=== PATIENT | female | born 1995 | race Caucasian/White ===

== ENCOUNTER 2019-03-05 07:41 | Inpatient (IN) ==
[2019-03-05 08:15] LABS: URINE SOURCE VOIDED
[2019-03-05 08:28] LABS: BILIRUBIN URINE NEGATIVE (NEGATIVE); BLOOD URINE TRACE-INTACT (NEGATIVE); COLOR YELLOW; GLUCOSE URINE NEGATIVE (NEGATIVE); KETONE URINE NEGATIVE (NEGATIVE); LEUKOCYTES URINE MODERATE (NEGATIVE); NITRITE URINE NEGATIVE (NEGATIVE); PH URINE 6.5; PROTEIN URINE NEGATIVE (NEGATIVE); UROBILINOGEN URINE 0.2 EU/dL (0.2-1.0)
[2019-03-05 08:29] LABS: CLARITY CLOUDY (CLEAR)
[2019-03-05] MEDS ORDERED: TYLENOL PO PRN (10:43)
[2019-03-05] MEDS ORDERED: KEFZOL 1 GM/D5W 1 GM/50 ML IVPB IV PRN (10:43)
[2019-03-05] MEDS ORDERED: PEPCID PO PRN (10:43)
[2019-03-05] MEDS ORDERED: REGLAN PO ONE (10:43)
[2019-03-05] MEDS ORDERED: PEPCID PO ONE (10:43)
[2019-03-05] MEDS ORDERED: PEPCID IV PRN (10:43)
[2019-03-05] MEDS ORDERED: STADOL IV PRN (10:43)
[2019-03-05] MEDS ORDERED: PITOCIN 30 UNITS/NS 30 UNIT/500 ML IV.SOLN IV SCH (10:45)
[2019-03-05] MEDS ORDERED: SODIUM CHLORIDE 0.9% INJ SCH (10:45)
[2019-03-05 11:26] LABS: UR AMPHETAMINES QUAL NONE DETECTED (NONE DETECT); UR BARBITUATES QUAL NONE DETECTED (NONE DETECT); UR CANNABINOIDS QUAL NONE DETECTED (NONE DETECT); UR COCAINE QUAL NONE DETECTED (NONE DETECT); UR METHADONE QUAL NONE DETECTED (NONE DETECT); UR PCP QUAL NONE DETECTED (NONE DETECT)
[2019-03-05] MEDS: LR 1,000 ML IV SCH ×2 (11:28→15:03)
[2019-03-05] MEDS: ZOFRAN IV PRN ×3 (11:50→19:14)
[2019-03-05 11:57] LABS: BASO# 0.01 X1000 (0.0-0.2); BASO% 0.1 % (0.0-0.8); EOS# 0.05 X1000 (0.0-0.7); EOS% 0.4 % (0.0-10.0); HEMATOCRIT 40.2 % (37.0-47.0); HEMOGLOBIN 13.3 g/dL (12.0-16.0); IMM GRAN# 0.04 X1000 (0.0-0.04); IMM GRAN% 0.3 % (0.0-0.5); LYMPH# 1.14 X1000 (1.2-3.4); LYMPH% 8.4 % (20.5-51.1); MCH 31.1 PG (27-31); MCHC 33.1 g/dL (33-37); MCV 93.9 FL (81-99); MONO# 0.61 X1000 (0.11-0.59); MONO% 4.5 % (1.7-9.3); MPV 13.8 FL (7.4-10.4); NEUT# 11.75 X1000 (1.4-6.5); NEUT% 86.3 % (42.2-75.2); PLT 152 X1000 (130-400); RBC 4.28 XMIL (4.2-5.4)
[2019-03-05 12:44] LABS: EOS 1 % (1-10); LYMPHS 8 % (21-51); MONO 5 % (1-9); SEGS 86 % (42-75)
[2019-03-05 12:45] LABS: ANISOCYTOSIS 1+
[2019-03-05] MEDS ORDERED: FENTANYL-BUPIV-NS 2 MCG-0.1% 250 ML EPIDURAL PRN (14:21)
[2019-03-05] MEDS ORDERED: NAROPIN 0.2% INJ ONE (14:30)
--- NOTE | 2019-03-05 16:34 | OB/GYN PROGRESS NOTE ---
Progress Note OB - . OB Progress Note: Vital Signs - 24 hr 03/05/19 07:47 03/05/19 12:00 Temperature 97.5 F L 97.2 F L Pulse Rate 73 76 Respiratory Rate 20 16 Blood Pressure 111/61 110/65 O2 Sat by Pulse Oximetry 98 96 Laboratory Results - last 24 hr 03/05/19 03/05/19 03/05/19 08:00 08:34 10:30 WBC RBC Hgb Hct MCV MCH MCHC RDW Std Deviation Plt Count MPV Immature Gran % (Auto) Neut % (Auto) Lymph % (Auto) [place] % (Auto) Eos % (Auto) Baso % (Auto) Immature Gran # (Auto) Neut # (Auto) Lymph # (Auto) [place] # (Auto) Eos # (Auto) Baso # (Auto) Segmented Neutrophils Lymphocytes Monocytes Eosinophils Anisocytosis Macrocytosis POC Glucose 84 Urine Source VOIDED Urine Color YELLOW Urine Clarity CLOUDY A Urine pH 6.5 Ur Specific [place] 1.020 Urine Protein NEGATIVE Urine Ketones NEGATIVE Urine Blood TRACE-INTACT A Urine Nitrite NEGATIVE Urine Bilirubin NEGATIVE Urine Urobilinogen 0.2 Urine WBC MODERATE A Urine Glucose NEGATIVE Urine Opiates Screen PRESUMPTIVE POSITIVE A Ur Oxycodone Screen PRESUMPTIVE POSITIVE A Ur Methadone, Qual NONE DETECTED Ur Barbiturates Screen NONE DETECTED Ur Phencyclidine Scrn NONE DETECTED Ur Amphetamines Screen NONE DETECTED U Benzodiazepines Scrn PRESUMPTIVE POSITIVE A Urine Cocaine Screen NONE DETECTED U Cannabinoids Screen NONE DETECTED RPR Rubella Immunity Screen 03/05/19 03/05/19 03/05/19 11:20 11:20 11:20 WBC 13.60 H RBC 4.28 Hgb 13.3 Hct 40.2 MCV 93.9 MCH 31.1 H MCHC 33.1 RDW Std Deviation 13.0 Plt Count 152 MPV 13.8 H Immature Gran % (Auto) 0.3 Neut % (Auto) 86.3 H Lymph % (Auto) 8.4 L [place] % (Auto) 4.5 Eos % (Auto) 0.4 Baso % (Auto) 0.1 Immature Gran # (Auto) 0.04 Neut # (Auto) 11.75 H Lymph # (Auto) 1.14 L [place] # (Auto) 0.61 H Eos # (Auto) 0.05 Baso # (Auto) 0.01 Segmented Neutrophils 86 H Lymphocytes 8 L Monocytes 5 Eosinophils 1 Anisocytosis 1+ Macrocytosis 1+ POC Glucose Urine Source Urine Color Urine Clarity Urine pH Ur Specific [place] Urine Protein Urine Ketones Urine Blood Urine Nitrite Urine Bilirubin Urine Urobilinogen Urine WBC Urine Glucose Urine Opiates Screen Ur Oxycodone Screen Ur Methadone, Qual Ur Barbiturates Screen Ur Phencyclidine Scrn Ur Amphetamines Screen U Benzodiazepines Scrn Urine Cocaine Screen U Cannabinoids Screen RPR NON-REACTIVE Rubella Immunity Screen IMMUNE 03/05/19 14:34 WBC RBC Hgb Hct MCV MCH MCHC RDW Std Deviation Plt Count MPV Immature Gran % (Auto) Neut % (Auto) Lymph % (Auto) [place] % (Auto) Eos % (Auto) Baso % (Auto) Immature Gran # (Auto) Neut # (Auto) Lymph # (Auto) [place] # (Auto) Eos # (Auto) Baso # (Auto) Segmented Neutrophils Lymphocytes Monocytes Eosinophils Anisocytosis Macrocytosis POC Glucose 78 Urine Source Urine Color Urine Clarity Urine pH Ur Specific [place] Urine Protein Urine Ketones Urine Blood Urine Nitrite Urine Bilirubin Urine Urobilinogen Urine WBC Urine Glucose Urine Opiates Screen Ur Oxycodone Screen Ur Methadone, Qual Ur Barbiturates Screen Ur Phencyclidine Scrn Ur Amphetamines Screen U Benzodiazepines Scrn Urine Cocaine Screen U Cannabinoids Screen RPR Rubella Immunity Screen 5cm and BS 78 at 2:30pm. 3:40PM epidural placed. States feeling "much better" after Epidural. FHT's 140's reactive and reassuring. Category 1 tracing. TOCO approximately every 3-7 min. Discussed with patient, mother present, and recommended and offered AROM. Discussed risks and benefits. Patient states understanding and agreeable with AROM. My check 5/80/-2 and cephalic. Minimal bloody show. AROM performed and clear fluid present. BS 77 at present check. ASSESSMENT and PLAN: Continue expectant management. BS q 2 hours if over 100 to increase to q hour check. Discussed with patient and her mother if BS 120 or over use of insulin in as want good BS control in labor. Discussed risks for baby of hypoglycemia post . States understanding. Peanut ball. If labor stalls discussed with patient pitocin use as next step. Risks and benefits discussed.
--- NOTE | 2019-03-05 17:14 | HISTORY AND PHYSICAL ---
CHIEF COMPLAINT: Thirty-nine weeks 5 days gestation with complaints of contractions, onset of labor. HISTORY OF PRESENT ILLNESS: The patient is a 23-year-old, G1, P0, female with EDC 03/07/2019, placing her at 39 weeks and 5 days gestation. She was scheduled for induction on 03/06/2019 for gestational diabetes mellitus type A1. She presented to the Labor and Delivery area with complaints of cramping since approximately 6 a.m. on 03/05/2019. Upon arrival, she had irregular contractions and on 1st check she was found to be 3, 80, -2, intact, cephalic presentation. She had had about 2 contractions in 25 minutes. heart tones were 140s, reactive, and reassuring. The patient was allowed to walk with intermittent monitoring. On recheck she was found to be 3 to 4, still 80, and perhaps -1 station per nursing. Decision was made to place the patient into room for admission and expectant management for labor. Fingerstick blood glucose on entry was 84. GBS negative. OBSTETRIC HISTORY: G1, P0. Per review of records, she was treated in October for trichomonas. She was diagnosed with gestational diabetes but has been diet controlled. records state that blood sugar control has been good. She has had MFM evaluation during this . Last visit with MFM on 03/02/2019 patient states she was told that the baby's estimated weight was around 6 pounds 11 ounces. Her last visit here in [place] was 03/03/2019. At that point in time, she was not checked, but states that 2 weeks prior she was approximately 1 cm. She had a transfer of care during this at 32 weeks 3 days gestation from [facility]. records were reviewed. However, no ultrasound reports are available for direct visualization. There are no ultrasound reports within the records or in [facility]. In the records itself, it just states "referal to [facility] for growth scans, WNL." The patient is B positive. GBS negative. RPR nonreactive. HIV nonreactive. GC and chlamydia are negative. Within the records in [facility], rubella, hepatitis B, and hepatitis C were not done. Those were ordered for today. PAST MEDICAL HISTORY: Right eye medial strabismus rosacea history of Ureaplasma urealyticum, history of depression, medication use in the past, no medication use for years. Gestational diabetes A1 PCOS hirsutism optic nerve hypoplasia history of generalized headaches. SURGICAL HISTORY: Left forearm repair, per patient shattered on a trampoline. Listed in arthroscopic shoulder surgery. Patient denies shoulder surgery. SOCIAL HISTORY: She reports past smoking for which she stated she smoked when she was approximately 14 to 16 years of age. Patient denies any recent tobacco use. Denies alcohol use. Denies illicit drug use. FAMILY MEDICAL HISTORY: Father with diabetes. Paternal uncle with diabetes and paternal grandfather with diabetes. She states her sister has a heart condition, but she cannot give any further details, but that her sister has not had any heart surgery. ALLERGIES: Bactrim. MEDICATIONS: vitamins. PHYSICAL EXAMINATION: VITAL SIGNS: Stable afebrile. heart tones 140s, reactive, and reassuring. GENERAL: Alert and oriented x3. No acute distress. CARDIOVASCULAR: Regular rate and rhythm. LUNGS: Clear to auscultation bilaterally. ABDOMEN: Bowel sounds present. Soft, nondistended, nontender. No rebound or guarding. Gravid uterus. Soft, nontender. PELVIC EXAM: On entry at 1st triage I checked her and found her to be 3, 80, - 2, and she has made progression in early labor. EXTREMITIES: No calf pain. No edema. SKIN: It is noted that the patient has a rash on her face with acne. Patient states she has a history of rosacea. Hirsutism noted. HEENT: Right eye medial strabismus. LAB WORK: Blood sugar 84 on admit and has been under good control during labor. Hemoglobin and hematocrit on entry 13.3 and 40.2. Urine drug screen on entry was positive for opiates, positive for oxycodone, and positive for benzodiazepines. Upon direct asking to the patient, she denies any use. Rubella did return immune. RPR nonreactive. Hepatitis B and C are still pending. ASSESSMENT: A 23-year-old, G1, P0, at 39 weeks 5 days gestation with gestational diabetes A1, diet controlled, in labor. PLAN: 1. The patient is admitted for expectant management. 2. GBS status negative, no need for GBS prophylaxis. 3. Pain control during labor was discussed with the patient including relaxation and breathing techniques, use of IV medication for discomfort but that would only be given to a certain point as it has effects on the baby. It was also discussed epidural for pain management if she desires. 4. Discussed with patient importance of blood sugar control in labor. Discussed checking sugars frequently and if become elevated possibility for treatment with insulin. Discussed risks for baby for hypoglycemia and that baby would be checked post . States understanding. 5. Patient with history of depression. No medication use at present and was treated in the distant past. I did discuss with the patient there are increased risk for depression for those that have a history of depression. Signs and symptoms discussed and to be aware of. She states understanding. 6. Common course in labor is expectant management. I did discuss though she is and there is always a possibility of a . If that would occur, it would be for maternal or reasons. Risks and benefits of this were discussed. Also discussed if bleeding is extensive during delivery or surgery, she is always at risk for a blood transfusion, the risks associated with receiving blood products. Patient stated understanding and that she would accept blood products in case of emergency. 7. Nursery was notified regarding positive drug screen for opiates, oxycodone, and benzodiazepines. The patient denies any use. Also made aware of GDM - A1. cc: Devorah Gatica MD MTDD
[2019-03-05] MEDS ORDERED: XYLOCAINE-MPF 1% INJ ONE (20:46)
[2019-03-05] MEDS ORDERED: BICITRA PO ONE (21:54)
[2019-03-06] MEDS ORDERED: PERI MEDS (DERMOPLAST/NUPERCAINAL/TUCKS) MISC PRN (01:14)
[2019-03-06] MEDS ORDERED: EPIFOAM FOAM TOP PRN (01:14)
[2019-03-06] MEDS ORDERED: NORCO-5 PO PRN (01:28)
[2019-03-06] MEDS ORDERED: NORCO-10 PO PRN (01:28)
[2019-03-06] MEDS ORDERED: CYTOTEC PO PRN (01:28)
[2019-03-06] MEDS ORDERED: HYDROXYZINE IM PRN (01:28)
[2019-03-06] MEDS ORDERED: ATARAX PO PRN (01:28)
[2019-03-06] MEDS ORDERED: BENADRYL IV PRN (01:28)
[2019-03-06] MEDS ORDERED: BENADRYL PO PRN (01:28)
[2019-03-06] MEDS ORDERED: XYLOCAINE-MPF 1% INJ PRN (01:28)
[2019-03-06] MEDS ORDERED: PITOCIN 20 UNITS/NS 20 UNITS/1,000 ML IV.SOLN IV SCH (01:30)
[2019-03-06] MEDS ORDERED: PITOCIN 30 UNITS/NS 30 UNIT/500 ML IV.SOLN IV SCH (01:30)
--- NOTE | 2019-03-06 02:35 | OPERATIVE NOTE ---
PROCEDURE/DELIVERY DATE: 03/06/2019 DELIVERY SUMMARY: The patient is a 23-year-old, G1, P0, female scheduled for induction on 03/06/2019, for gestational diabetes mellitus type A1 who presented at 39 weeks and 5 days gestation with onset of labor on 03/05/19. She ended up progressing to 5 cm on her own, and got an epidural at 3:38 p.m. As the patient had epidural and contraction pattern was somewhat irregular, AROM occurred at 4:20 p.m. of clear fluid for augmentation. Through a couple of checks she remained 5 to 6 cm, therefore Pitocin through the IV was added for augmentation at 7:10 p.m. Peanut ball was utilized. She was found to be 9 cm at 9:20 p.m, anterior lip at 10:10 p.m., and found to be complete at 11:15 p.m. Blood sugars were in the 60s to 90s throughout labor. She began pushing at 11:25 p.m., and underwent a spontaneous vaginal delivery at 12:50 a.m. The was in the direct OP position. At delivery there was found to be the cord around the neck x 1 that was reduced, as well as around the right leg. Terminal meconium was present. Thick mucus was noted in the oropharynx, therefore I clamped and cut the cord without a 1 minute delay, and handed off to waiting nurses for support. Apgars were 7 and 8 at 1 and 5 minutes respectively. Female "Meron Anne," 6# 4oz. Placenta delivered at 12:55 a.m. spontaneously. There was active management of the 3rd stage of labor with gentle downward traction, uterine massage and opening of the Pitocin through the IV after the delivery of the placenta. Uterus was explored, and there were no palpated retained products of conception. The placental disk grossly appeared intact. Examination of the perineum revealed a second-degree perineal laceration in the midline, this was repaired with a 3-0 Vicryl suture starting in the vaginal shelf, the laceration itself did not go more than 1.5 cm proximal into the vaginal area this was then brought through the introitus. Patient was feeling some at the skin margin. 1% lidocaine without epinephrine, 10ml total injected. The 2-0 Vicryl suture was then used to place 3 interrupted sutures in the perineal tissues for reapproximation. Good support was noted. The 3-0 Vicryl then was brought down in a subcutaneous fashion and back up in a subcuticular fashion for excellent reapproximation. The patient does have a hemorrhoid at the 12 o'clock position that had increased in size with pushing; however, it is not thrombosed or incarcerated. Discussed with nursing for greg-care measures as well as ice as soon as possible. EBL is estimated at 250 mL. Both mother and baby are doing well post delivery. The patient plans on breast-feeding. She will be scheduled for a fasting blood glucose morning after delivery. UDS positive for opiates and benzos on entry, patient denies use. Social service consult placed. cc: Devorah Gatica MD MTDD
[2019-03-06] MEDS: MOTRIN PO PRN ×2 (08:52→21:21)
[2019-03-06 10:18] LABS: HEPATITIS B SURFACE ANTIGEN SEE COMMENTS
[2019-03-06 20:31] LABS: UR BENZODIAZEPIN QUAL NONE DETECTED (NONE DETECT)
[2019-03-06 20:32] LABS: UR OPIATES QUAL NONE DETECTED (NONE DETECT); UR OXYCODONE QUAL NONE DETECTED (NONE DETECT)
[2019-03-06] MEDS: PERICOLACE PO SCH (21:21)
[2019-03-07 05:52] LABS: BASO# 0.02 X1000 (0.0-0.2); BASO% 0.2 % (0.0-0.8); EOS# 0.15 X1000 (0.0-0.7); EOS% 1.2 % (0.0-10.0); HEMATOCRIT 32.9 % (37.0-47.0); HEMOGLOBIN 10.4 g/dL (12.0-16.0); IMM GRAN# 0.03 X1000 (0.0-0.04); IMM GRAN% 0.2 % (0.0-0.5); LYMPH# 1.96 X1000 (1.2-3.4); LYMPH% 15.4 % (20.5-51.1); MCHC 31.6 g/dL (33-37); MCV 98.2 FL (81-99); MONO# 0.61 X1000 (0.11-0.59); MONO% 4.8 % (1.7-9.3); MPV 13.1 FL (7.4-10.4); NEUT# 9.96 X1000 (1.4-6.5); NEUT% 78.2 % (42.2-75.2); PLT 134 X1000 (130-400); RBC 3.35 XMIL (4.2-5.4); RDW 13.5 % (11.5-14.5); WBC 12.73 X1000 (4.8-10.8)
--- NOTE | 2019-03-07 07:37 | OB/GYN PROGRESS NOTE ---
- Subjective Pt seen and examined. c/o nausea last night, currently resolved. Ambulating and urinating without difficulty. Tolerating regular diet. Denies fever, chills. +Breast and bottle feeding. Reports decreased lochia. OB Physical Exam Vital Signs - 8 hr 03/07/19 00:00 03/07/19 04:00 Temperature 96.6 F L 96.8 F L Pulse Rate 93 H 66 Respiratory Rate 18 18 Blood Pressure 105/59 101/54 O2 Sat by Pulse Oximetry 96 96 - CONSTITUTIONAL General Appearance: appears well, alert, no apparent distress - RESPIRATORY Respiratory: lungs clear - CARDIOVASCULAR Cardiovascular: regular rate, rhythm - GASTROINTESTINAL (ABDOMEN) Abdominal Exam: non tender (FF at umbilicus), soft - MUSCULOSKELETAL Extremity: no calf tenderness - PSYCHIATRIC Psych/Mental Status: normal mood/affect, oriented x 3 Active Medications Generic Name Dose Route Start Last Admin Trade Name Freq PRN Reason Stop Dose Admin Acetaminophen 650 mg 03/05/19 10:43 Tylenol PO Q4-6H PRN PRN Headache Hydrocodone Bitart/Acetaminophen 1 each 03/06/19 01:28 Orange-5 PO Q3-4H PRN PRN Pain (1-6 on Pain Scale) Hydrocodone Bitart/Acetaminophen 1 each 03/06/19 01:28 Orange-10 PO Q3-4H PRN PRN Pain (7-10 on Pain Scale) Benzocaine 1 each 03/06/19 01:14 03/06/19 02:13 Patricia Meds (Dermoplast/Nupercainal/Tucks) MISC 1 applic 3-4XDAY PRN PRN Administration Mild Pain Diphenhydramine HCl 25 mg 03/06/19 01:28 Benadryl PO Q4H PRN PRN Itching Famotidine 40 mg 03/05/19 10:43 Pepcid PO Q12H PRN PRN GI upset or indigestion Hydrocortisone/Pramoxine 0 gm 03/06/19 01:14 03/06/19 02:13 Epifoam Foam TOP 1 applic 3-4XDAY PRN PRN Administration HEMORRHOIDS Hydroxyzine HCl 50 mg 03/06/19 01:28 Atarax PO Q3-4H PRN PRN Nausea Hydroxyzine HCl 50 mg 03/06/19 01:28 Hydroxyzine IM Q3-4H PRN PRN Nausea Ibuprofen 800 mg 03/06/19 01:28 03/06/19 21:21 Motrin PO 800 mg Q8H PRN PRN Administration cramping Misoprostol 800 microgm 03/06/19 01:28 Cytotec PO PRN PRN Severe bleeding Ondansetron HCl 4 mg 03/05/19 10:43 03/05/19 19:14 Zofran IV 4 mg PRN PRN Administration Nausea Senna/Docusate Sodium 1 each 03/06/19 21:00 03/06/19 21:21 Pericolace PO 1 each QHS TRISTEN Administration Sodium Chloride 5 - 10 ml 03/05/19 10:45 Sodium Chloride 0.9% INJ DIRECTED [facility] Laboratory Results - last 24 hr 03/05/19 03/05/19 03/07/19 10:30 11:20 05:10 WBC 12.73 H RBC 3.35 L Hgb 10.4 L D Hct 32.9 L MCV 98.2 MCH 31.0 MCHC 31.6 L RDW Std Deviation 13.5 Plt Count 134 MPV 13.1 H Immature Gran % (Auto) 0.2 Neut % (Auto) 78.2 H Lymph % (Auto) 15.4 L [place] % (Auto) 4.8 Eos % (Auto) 1.2 Baso % (Auto) 0.2 Immature Gran # (Auto) 0.03 Neut # (Auto) 9.96 H Lymph # (Auto) 1.96 [place] # (Auto) 0.61 H Eos # (Auto) 0.15 Baso # (Auto) 0.02 Glucose Urine Opiates Screen NONE DETECTED Ur Oxycodone Screen NONE DETECTED U Benzodiazepines Scrn NONE DETECTED Hep Bs Antigen SEE COMMENTS 03/07/19 05:10 WBC RBC Hgb Hct MCV MCH MCHC RDW Std Deviation Plt Count MPV Immature Gran % (Auto) Neut % (Auto) Lymph % (Auto) [place] % (Auto) Eos % (Auto) Baso % (Auto) Immature Gran # (Auto) Neut # (Auto) Lymph # (Auto) [place] # (Auto) Eos # (Auto) Baso # (Auto) Glucose 77 Urine Opiates Screen Ur Oxycodone Screen U Benzodiazepines Scrn Hep Bs Antigen - Assessment & Plan (1) Vaginal delivery Status: Acute - Progress Note Disposition: 23yo PPD #1 s/p -HD stable -reg diet -oob to ambulation -con't pp care -plan for OCP contraception -plan for d/c home tomorrow
[2019-03-07] MEDS: MOTRIN PO PRN (16:42)
[2019-03-07] MEDS: PERICOLACE PO SCH (21:09)
--- NOTE | 2019-03-08 07:21 | OB/GYN PROGRESS NOTE ---
Progress Note OB - . Patient Problems: Current Active Problems Problem Status Onset Vaginal delivery Acute Intrauterine Acute OB Progress Note: Vital Signs - 24 hr 03/07/19 08:20 03/07/19 15:40 03/07/19 22:29 Temperature 97 F L 97.4 F L 96.7 F L Pulse Rate 88 85 80 Respiratory Rate 16 16 18 Blood Pressure 110/71 120/77 103/73 O2 Sat by Pulse Oximetry 99 99 97 Laboratory Results - last 24 hr 03/05/19 11:20 Hepatitis C RNA Quant SEE COMMENTS 23 yo PPD#2 s/p at 39w5d with A1-GDM Patient seen and examined. She denies any complaints. Pain is controlled. She is ambulating and voiding without difficulty. She notes minimal lochia. She has not had a BM yet. She is tolerating regular diet, denies nausea/vomiting. She denies any fever/chills. She had a baby girl. She is breast and bottle feeding. She plans to start OCPs at PP visit. Physical Exam-General - PHYSICAL EXAM-ADULT Initial Vital Signs Reviewed: Yes - CONSTITUTIONAL General Appearance: appears well, alert, no apparent distress - HEAD, EARS, NOSE, MOUTH & THROAT HENMT: normocephalic/atraumatic - RESPIRATORY Respiratory: lungs clear, normal breath sounds, no respiratory distress - CARDIOVASCULAR Cardiovascular: normal peripheral pulses, regular rate, rhythm - GASTROINTESTINAL (ABDOMEN) Abdominal Exam: normal bowel sounds, non tender, soft, other (fundus firm, below umbilicus) - MUSCULOSKELETAL Extremity: normal range of motion, non-tender, normal gait - PSYCHIATRIC Psych/Mental Status: normal mood/affect Assessment/Plan - Assessment/Plan Assessment: 23 yo PPD#2 s/p at 39w5d with A1-GDM 1. HD stable, afebrile 2. Routine PP care 3. Recommend stool softeners 4. D/C home today 5. Plans for OCPs at 6 weeks PP visit
[2019-03-08 08:44] VITALS: BP 112/64
--- NOTE | 2019-03-09 08:36 | DISCHARGE SUMMARY ---
ADMISSION DATE: 03/05/2019 DISCHARGE DATE: 03/08/2019 ADMITTING PHYSICIAN: Conner Acuña DO. CONDITION ON DISCHARGE: Stable. PROCEDURE PERFORMED: Spontaneous vaginal delivery. HOSPITAL COURSE: The patient presented to labor and delivery with the complaint of contractions. Her cervical exam changed from 3 cm to 4 cm dilated and she was subsequently admitted for labor. She underwent a spontaneous vaginal delivery on March 06. She had a routine course. This had been complicated by diet-controlled gestational diabetes. On day #2, she was ambulating, voiding without difficulty. Her pain was controlled and she noted minimal lochia. She desires contraceptive pills for contraception and plans to initiate them on her 6 week visit. She was discharged home in stable condition. DISCHARGE MEDICATIONS: Motrin 800 mg p.o. q.8 hours p.r.n. pain. DISCHARGE INSTRUCTIONS: Patient was instructed to notify doctor with temperature greater than 100.4 degrees Fahrenheit, vaginal bleeding greater than a pad an hour, foul-smelling discharge, or severe abdominal pain. She was instructed to place nothing in her vagina for 6 weeks, no tampons/douching/sex. FOLLOWUP APPOINTMENTS: The patient will follow up with Dr. Acuña for a visit in 6 weeks. cc: Devorah Gatica MD
== END 2019-03-08 12:25 | disposition home or self-care (01) | DRG 806 ==
LOC: OPLD 07:41 → LD 07:43
PROVIDERS: ADMIT Obstetrics & Gynecology; ATTEND Obstetrics & Gynecology